=== PATIENT | male | born 1970 | race Caucasian/White ===

== ENCOUNTER → 2025-03-24 13:57 | Outpatient (REF) | payer OTHER, SELFPAY | LOC: HWRCS 13:57 | PROVIDERS: ATTENDING PHYSICIAN Physician Assistant; FAMILY PHYSICIAN Family Medicine | DX: I35.1 Nonrheumatic aortic (valve) insufficiency (principal); Q23.1 Congenital insufficiency of aortic valve | CPT/HCPCS: 93306 ==

== ENCOUNTER → 2025-06-14 11:32 | Outpatient (REF) | payer OTHER, SELFPAY | LOC: RAD 11:32 | PROVIDERS: ATTENDING PHYSICIAN Internal Medicine Cardiovascular Disease; FAMILY PHYSICIAN Family Medicine | DX: I77.819 Aortic ectasia, unspecified site (principal) | CPT/HCPCS: 71275; Q9967 ==

== ENCOUNTER → 2025-06-23 14:10 | Outpatient (REF) | payer OTHER, SELFPAY | LOC: RAD 14:10 | PROVIDERS: ATTENDING PHYSICIAN Internal Medicine Cardiovascular Disease; FAMILY PHYSICIAN Family Medicine | DX: Q23.1 Congenital insufficiency of aortic valve (principal); I35.1 Nonrheumatic aortic (valve) insufficiency; I10 Essential (primary) hypertension; R55 Syncope and collapse; M79.604 Pain in right leg; M79.605 Pain in left leg | CPT/HCPCS: 93922; 93925 ==